=== PATIENT | male | born 2000 | race Caucasian/White ===

== ENCOUNTER 2018-12-22 21:52 | Emergency (ER) | payer OTHER ==
[2018-12-22] MEDS ORDERED: KETOROLAC 15 MG/1 ML SDV IVP ONE (22:24)
[2018-12-22] MEDS ORDERED: ONDANSETRON 4 MG/2 ML VIAL IVP ONE (22:24)
[2018-12-22] MEDS ORDERED: NS 1,000 ML IV ONE (22:24)
--- NOTE | 2018-12-22 22:26 | EDPHY ---
H & P Stated Complaint: vomiting, chills, [place], sore throat Time Seen by Provider: 12/22/18 22:17 HPI/ROS: Chief Complaint: Chills, vomiting, sore throat HPI: 18-year-old college student who is had 48 hr of chills, vomiting, sore throat, general malaise and headache. Patient states that he vomited several times yesterday. A couple times today. Had 1 episode of diarrhea yesterday. Patient has been able to keep a little bit to Gatorade but nothing else down today. No abdominal pain. No chest pain. Mild dry nonproductive cough. No shortness of breath. No skin rash. Mild headache. No neck pain or stiffness. ROS: 10 systems were reviewed and were negative except those elements noted in the HPI. PMH: Irritable bowel disease Social History: Uses E cigarettes, occasional alcohol, occasional marijuana Family History: non-contributory Physical Exam: Gen: Awake, Alert, No Distress HEENT: Nose: no rhinorrhea Eyes: PERRLA, EOMI Mouth: Moist mucosa Neck: Supple, no JVD Chest: nontender, lungs clear to auscultation Heart: S1, S2 normal, no murmur Abd: Soft, non-tender, no guarding Back: no CVA tenderness, no midline tenderness Ext: no edema, non-tender Skin: no rash Neuro: CN II-XII intact, Sensation grossly intact, Strength 5/5 in bilateral upper and lower extremities - Personal History Current Tetanus Diphtheria and Acellular Pertussis (TDAP): Unsure - Medical/Surgical History Hx Asthma: No Hx Chronic Respiratory Disease: No Hx Diabetes: No Hx Cardiac Disease: No Hx Renal Disease: No Hx Cirrhosis: No Hx Alcoholism: No Hx HIV/AIDS: No Hx Splenectomy or Spleen Trauma: No Other PMH: IBS - Social History Smoking Status: Never smoked Constitutional: Initial Vital Signs Temperature (C) 38.7 C H 12/22/18 21:55 Heart Rate 120 H 12/22/18 21:55 Respiratory Rate 20 12/22/18 21:55 Blood Pressure 134/103 H 12/22/18 21:55 O2 Sat (%) 94 12/22/18 21:55 O2 Delivery Mode Room Air Allergies/Adverse Reactions: amoxicillin Allergy (Verified 12/22/18 21:55) Home Medications: Medication Instructions Recorded NK [No Known Home Meds] 12/22/18 Medical Decision Making ED Course/Re-evaluation: Patient is improved after IV fluids, Toradol and Zofran. He does have a leukocytosis but this is consistent with his dehydration and his viral syndrome. No evidence of a focal bacterial infection. He is tolerating p. O.. Will discharge with supportive care, follow up at [facility], return for any concerns. - Data Points Laboratory Results: Laboratory Results 12/22/18 22:11 12/22/18 22:11 12/22/18 12/22/18 22:11 22:11 WBC 14.06 10^3/uL H 10^3/uL (3.80-9.50) RBC 5.28 10^6/uL 10^6/uL (4.40-6.38) Hgb 15.6 g/dL g/dL (13.7-17.5) Hct 45.6 % % (40.0-51.0) MCV 86.4 fL fL (81.5-99.8) MCH 29.5 pg pg (27.9-34.1) MCHC 34.2 g/dL g/dL (32.4-36.7) RDW 13.2 % % (11.5-15.2) Plt Count 143 10^3/uL L 10^3/uL (150-400) MPV 9.3 fL fL (8.7-11.7) Neut % (Auto) 81.7 % H % (39.3-74.2) Lymph % (Auto) 7.2 % L % (15.0-45.0) [place] % (Auto) 10.5 % % (4.5-13.0) Eos % (Auto) 0.1 % L % (0.6-7.6) Baso % (Auto) 0.2 % L % (0.3-1.7) Nucleat RBC Rel Count 0.0 % % (0.0-0.2) Absolute Neuts (auto) 11.49 10^3/uL H 10^3/uL (1.70-6.50) Absolute Lymphs (auto) 1.01 10^3/uL 10^3/uL (1.00-3.00) Absolute Monos (auto) 1.47 10^3/uL H 10^3/uL (0.30-0.80) Absolute Eos (auto) 0.02 10^3/uL L 10^3/uL (0.03-0.40) Absolute Basos (auto) 0.03 10^3/uL 10^3/uL (0.02-0.10) Absolute Nucleated RBC 0.00 10^3/uL 10^3/uL (0-0.01) Immature Gran % 0.3 % % (0.0-1.1) Immature Gran # 0.04 10^3/uL 10^3/uL (0.00-0.10) Sodium 134 mEq/L L mEq/L (135-145) Potassium 3.5 mEq/L mEq/L (3.5-5.2) Chloride 99 mEq/L mEq/L (97-110) Carbon Dioxide 22 mEq/l mEq/l (22-31) Anion Gap 13 mEq/L mEq/L (6-14) BUN 19 mg/dL mg/dL (7-23) Creatinine 0.9 mg/dL mg/dL (0.7-1.3) Estimated GFR > 60 Glucose 95 mg/dL mg/dL (70-100) Calcium 8.9 mg/dL mg/dL (8.5-10.4) Medications Given: Discontinued Medications Sodium Chloride (Ns) 1,000 mls @ 0 mls/hr IV ONCE ONE; Wide Open PRN Reason: Protocol Stop: 12/22/18 22:25 Last Admin: 12/22/18 22:32 Dose: 1,000 mls Ketorolac Tromethamine (Toradol) 15 mg IVP EDNOW ONE Stop: 12/22/18 22:25 Last Admin: 12/22/18 22:33 Dose: 15 mg Ondansetron HCl (Zofran) 4 mg IVP EDNOW ONE Stop: 12/22/18 22:25 Last Admin: 12/22/18 22:33 Dose: 4 mg Departure - Departure Disposition: Home, Routine, Self-Care Clinical Impression: Viral syndrome, Nausea & vomiting Condition: Good Instructions: Acute Nausea and Vomiting (ED), Viral Syndrome (ED), Ondansetron (By mouth) Additional Instructions: Alternate acetaminophen (1000 mg) with ibuprofen (400 mg) every 4 hours as needed for fevers, chills, aches or pain. Make sure to drink plenty of fluids. Pedialyte is best if he been having vomiting or diarrhea. May take Zofran for nausea vomiting. Avoid alcohol and marijuana for the next 48 hr. Follow up at [facility] and 3-4 days if symptoms are not improving. Referrals: LIZBET MATTHEWS [Other] - As per Instructions AI STUDENT ,. [Clinic] - As per Instructions
[2018-12-22 22:31] LABS: PLATELET COUNT 143 10^3/uL (150-400)
[2018-12-22] MEDS ORDERED: ONDANSETRON 4MG PREPACK#2 BTL TAKEHOME ONE (23:26)
[2018-12-22 23:37] VITALS: BP 134/67
== END 2018-12-22 23:37 | disposition home or self-care (01) ==
DX: B34.9 Viral infection, unspecified (principal)
CPT/HCPCS: 96374; J1885; J2405